=== PATIENT | female | born 1950 | race Hispanic/Latino ===

== ENCOUNTER → 2024-02-29 | Outpatient (REF) | payer OTHER | LOC: RAD 14:31 → EDBD 14:31 | PROVIDERS: ATTEND Internal Medicine | DX: M25.562 Pain in left knee (principal); M25.561 Pain in right knee ==

== ENCOUNTER 2024-05-31 17:21 | Emergency (ER) | payer OTHER ==
[~2024-05-31] VITALS: Ht 160 cm; Wt 72.6 kg
[2024-05-31 18:23] LABS: BASOPHILS % 0.4 % (0.0-1.0); EOSINOPHILS # (AUTO) 0.1 (0.0-0.4); EOSINOPHILS % 1.5 % (0.0-6.0); HEMATOCRIT 36.8 % (34.2-44.1); HEMOGLOBIN 11.5 g/dL (12.0-16.0); LYMPHOCYTES # (AUTO) 1.5 (1.0-3.2); LYMPHOCYTES % 20.4 % (18.0-39.1); MEAN CORPUSCULAR HEMOGLOBIN 27.6 pg (28-32); MEAN CORPUSCULAR HGB CONC 31.3 g/dL (31-35); MEAN CORPUSCULAR VOLUME 88.5 fL (81-99); MONOCYTES # (AUTO) 0.5 (0.2-0.8); MONOCYTES % 7.1 % (4.4-11.3); NEUTROPHILS # (AUTO) 5.1 (2.1-6.9); NEUTROPHILS % 70.3 % (38.7-80.0); PLATELET COUNT 239 x10e3/uL (140-360); RED BLOOD COUNT 4.16 x10e6/uL (3.6-5.1); RED CELL DISTRIBUTION WIDTH 12.6 % (11.7-14.4); WHITE BLOOD COUNT 7.22 x10e3/uL (4.8-10.8)
[2024-05-31 18:36] LABS: ALBUMIN 3.6 g/dL (3.5-5.0); ALBUMIN/GLOBULIN RATIO 0.9 (0.8-2.0); ANION GAP 13.3 mmol/L (8-16); BILIRUBIN,TOTAL 0.3 mg/dL (0.2-1.2); CALCIUM 9.5 mg/dL (8.4-10.2); CREATININE, SERUM 1.44 mg/dL (0.57-1.11); POTASSIUM 4.3 mmol/L (3.5-5.1); TOTAL PROTEIN 7.7 g/dL (6.5-8.1)
[2024-05-31 18:44] LABS: TROPONIN I 0.023 ng/mL (0-0.300)
[2024-05-31] MEDS ORDERED: IOPAMIDOL 370 MG/ML 100 ML INFUS..BTL INJ ONE (18:49)
[2024-05-31 20:24] LABS: CLARITY,URINE SL CLOUDY (CLEAR); COLOR,URINE YELLOW (YELLOW); GLUCOSE, URINE NEGATIVE (NEGATIVE); LEUKOCYTE ESTERASE ,URINE NEGATIVE (NEGATIVE); NITRITE,URINE NEGATIVE (NEGATIVE); PH,URINE 6 (5 - 7); PROTEIN,URINE DIPSTICK 2+ (NEGATIVE)
[2024-05-31 20:25] LABS: BILIRUBIN,URINE NEGATIVE (NEGATIVE); KETONES,URINE TRACE (NEGATIVE); URINE UROBILINOGEN 0.2 mg/dL (0.2 - 1)
[2024-05-31 20:37] LABS: BACTERIA,URINE MODERATE /HPF; EPITHELIAL CELLS,URINE FEW /LPF; TRANSITIONAL EPI CELLS,URINE MODERATE; WBC,URINE (MAN) 0-5 /HPF (0-5)
[2024-05-31] MEDS: SODIUM CHLORIDE 0.9% 1000ML 1,000 ML IV STA (20:44)
[2024-05-31 20:45] VITALS: PULSE 80; RESP 16; TEMP 98.6; O2SAT 99
[2024-05-31] MEDS ORDERED: METRONIDAZOLE500 MG PO (21:00)
[2024-05-31] MEDS ORDERED: CEFDINIR300 MG PO (21:00)
== END 2024-05-31 21:57 | disposition home or self-care (01) ==
LOC: ER 18:45
DX: R10.11 Right upper quadrant pain (principal); R19.7 Diarrhea, unspecified; E11.65 Type 2 diabetes mellitus with hyperglycemia; I10 Essential (primary) hypertension; E78.5 Hyperlipidemia, unspecified
CPT/HCPCS: 36415; 74177; 80053; 81001; 82550; 84484; 85025; 93005; 99284; J7030; Q9967

== ENCOUNTER 2025-02-27 17:02 | Emergency (ER) | payer MEDICARE ==
[~2025-02-27] VITALS: Ht 160 cm; Wt 72.6 kg
[~2025-02-27 17:02] MED LIST: CEFDINIR300 MG PO; METRONIDAZOLE500 MG PO
[2025-02-27 17:53] VITALS: PULSE 60; RESP 17; TEMP 97.4
[2025-02-27 19:55] VITALS: BP 141/85; PULSE 58; RESP 16; TEMP 98.5; O2SAT 98
== END 2025-02-27 20:00 | disposition home or self-care (01) ==
LOC: ER 19:44
DX: H00.014 Hordeolum externum left upper eyelid (principal); I10 Essential (primary) hypertension; E11.65 Type 2 diabetes mellitus with hyperglycemia; E78.5 Hyperlipidemia, unspecified
CPT/HCPCS: 99282